=== PATIENT | female | born 1980 | race Caucasian/White ===

== ENCOUNTER 2019-10-27 06:53 | Emergency (ER) | payer SELFPAY ==
[~2019-10-27] VITALS: Ht 160 cm; Wt 76.0 kg
[2019-10-27 06:55] VITALS: BP 119/63
[2019-10-27] MEDS ORDERED: LIDOCAINE-MPF 1%, 5ML ONE (07:07)
--- NOTE | 2019-10-27 07:12 | NUR ---
First contact with pt. Pt c/o L LE abscess x2 weeks, states she was injecting meth into her calf and got the abscess. Pt refusing to take her pants, shoes and socks off despite education that the ERP needs to visualize the whole leg in their assessment. Pt ambulatory around room and to bathroom with steady gait
== END 2019-10-27 07:30 | disposition home or self-care (01) ==
LOC: ED 07:20
DX: L03.116 Cellulitis of left lower limb (principal); M79.662 Pain in left lower leg
CPT/HCPCS: 99283

== ENCOUNTER 2020-07-23 12:03 | Inpatient (IN) | payer MEDICAID, OTHER ==
[~2020-07-23] VITALS: Ht 160 cm; Wt 77.6 kg
--- NOTE | 2020-07-23 12:21 | NUR ---
No answer in lobby.
--- NOTE | 2020-07-23 12:37 | NUR ---
No answer in lobby.
--- NOTE | 2020-07-23 12:43 | NUR ---
NO ANSWER IN LOBBY.
--- NOTE | 2020-07-23 13:55 | NUR ---
PT ATTACHED TO VS AND CARDIAC MONITORS. PIV ACCESS ATTEMPTED X 2 BUT PT UNCOOPERATIVE AT THIS TIME. DR BARRAGAN AT BS. PT REFUSES EJ IV PLACEMENT. JOSHUA RN, ASKED TO ASSIST WITH US IV. PT EDUCATED ON ER PROCESS AND POC AND VERBALIZES UNDERSTANDING.
[2020-07-23] MEDS ORDERED: PIPERACILLIN/TAZO/PMX 3.375GM 50 ML IVPB ONE (14:00)
[2020-07-23] MEDS ORDERED: SODIUM CHLORIDE FLUSH 10ML SYR IVF ONE (14:00)
[2020-07-23] MEDS ORDERED: VANCOMYCIN PER PHARMACY MC ONE (14:00)
[2020-07-23] MEDS ORDERED: SODIUM CHLORIDE 0.9% 1,000ML IVBOLUS ONE (14:00)
[2020-07-23] MEDS ORDERED: SODIUM CHLORIDE 0.9% 1,000 ML IV ONE (14:00)
[2020-07-23] MEDS ORDERED: VANCOMYCIN 1,700 MG in SODIUM CHLORIDE 0.9% 250 ML IV ONE (14:00)
--- NOTE | 2020-07-23 14:08 | NUR ---
US TECH AT FOR US OF
--- NOTE | 2020-07-23 14:31 | NUR ---
JOSHUA AND SAMANTHA MALIN, AT TO ATTEMPT PIV ACCESS VIA US AT THIS TIME.
--- NOTE | 2020-07-23 14:43 | NUR ---
PIV ACCESS ESTABLISHED VIA US GUIDANCE. BC DRAWN X 2. PT AMBULATES TO RESTROOM WITH SLOW BUT STEADY GAIT FOR UA.
[2020-07-23 14:51] LABS: HCT (SEDRATE) 37.1 % (34.6-47.8)
[2020-07-23] MEDS ORDERED: PIPERACILLIN/TAZO/PMX 3.375GM 50 ML ONE (14:52)
[2020-07-23 14:53] LABS: BASOPHILS % (AUTO) 0 % (0-1); EOSINOPHILS % (AUTO) 0 % (1-7); LYMPHOCYTES % (AUTO) 16 % (22-44); MEAN CORPUSCULAR HEMOGLOBIN 30.3 pg (27.0-34.8); MEAN CORPUSCULAR HGB CONC 33.6 g/dL (32.4-35.8); MONOCYTES % (AUTO) 7 % (2-9); NEUTROPHILS % (AUTO) 77 % (42-75); PLATELET COUNT 311 x10^3/uL (130-400); RED BLOOD COUNT 4.35 x10^6/uL (3.82-5.3); RED CELL DISTRIBUTION WIDTH 13.7 % (9.6-15.2)
[2020-07-23 15:02] LABS: ALANINE AMINOTRANSFERASE 19 U/L (12-78); ANION GAP 9 mmol/L (5-15); CALCIUM 8.4 mg/dL (8.5-10.1); CHLORIDE 103 mmol/L (98-107); CREATININE 0.82 mg/dL (0.55-1.02)
[2020-07-23 15:06] LABS: ALKALINE PHOSPHATASE 68 U/L (45-117); BILIRUBIN,TOTAL 0.6 mg/dL (0.2-1.0); TOTAL PROTEIN 7.1 g/dL (6.4-8.2)
--- NOTE | 2020-07-23 15:19 | NUR ---
PT REFUSING XRAY AT THIS TIME.
[2020-07-23 15:22] LABS: MD SCAN
[2020-07-23] MEDS ORDERED: BENZONATATE 100 MG CAPSULE PO ONE (15:30)
[2020-07-23] MEDS ORDERED: BENZONATATE 100 MG CAPSULE ONE (15:49)
--- NOTE | 2020-07-23 15:50 | NUR ---
[facility]
[2020-07-23] MEDS ORDERED: ONDANSETRON ODT 4 MG PO PRN (16:00)
[2020-07-23] MEDS ORDERED: DOCUSATE 100 MG CAPSULE PO PRN (16:00)
[2020-07-23] MEDS ORDERED: hydrALAzine 20 MG/ML, 1ML IVPush PRN (16:00)
[2020-07-23] MEDS ORDERED: POLYETHYLENE GLYCOL 17 GM PACKET PO PRN (16:00)
[2020-07-23] MEDS ORDERED: BISACODYL 10 MG SUPP PR PRN (16:00)
[2020-07-23] MEDS ORDERED: SODIUM CHLORIDE FLUSH 10ML SYR IVF PRN (16:00)
[2020-07-23] MEDS ORDERED: PROMETHAZINE 25 MG/ML, 1ML IM PRN (16:00)
[2020-07-23] MEDS ORDERED: POTASSIUM CHLORIDE 40 MEQ in SODIUM CHLORIDE 0.9% 500 ML IV ONE (16:00)
[2020-07-23] MEDS ORDERED: VANCOMYCIN PMX 1GM/200ML 200 ML IV ONE (16:30)
[2020-07-23] MEDS ORDERED: VANCOMYCIN PER PHARMACY MC PRN (16:30)
--- NOTE | 2020-07-23 16:53 | NUR ---
REPORT OF PT TO SAMANTHA AQUINO. ALL QUESTIONS ANSWERED. TECH PAGED FOR TRANSPORT OF PT FROM ED TO FLOOR AT THIS TIME.
[2020-07-23 17:23] VITALS: BP 100/68
[2020-07-23] MEDS: OXYcodone IR 5MG TABLET PO PRN ×2 (17:37→22:15)
[2020-07-23] MEDS: ENOXAPARIN 40 MG/0.4 ML SQ SCH (17:39)
[2020-07-23] MEDS ORDERED: PHARMACOKINETIC MONITORING MC PRN (18:00)
[2020-07-23 19:56] VITALS: BP 100/60
[2020-07-23] MEDS: AMPICILLIN/SULBACTAM 3 GM in SODIUM CHLORIDE 0.9% 100 ML IV SCH (20:14)
[2020-07-23] MEDS: SODIUM CHLORIDE 0.9% 1,000 ML IV SCH (20:23)
[2020-07-23 21:30] VITALS: BP 96/60
[2020-07-23] MEDS: ACETAMINOPHEN 325 MG TABLET PO PRN (22:15)
[2020-07-24] MEDS: ONDANSETRON 2MG/ML, 2ML IVPush PRN (00:11)
[2020-07-24 00:36] VITALS: BP 105/63
[2020-07-24] MEDS: AMPICILLIN/SULBACTAM 3 GM in SODIUM CHLORIDE 0.9% 100 ML IV SCH ×2 (01:31→07:54)
[2020-07-24] MEDS: VANCOMYCIN 1,400 MG in SODIUM CHLORIDE 0.9% 250 ML IV SCH ×2 (02:12→14:03)
[2020-07-24] MEDS: SODIUM CHLORIDE 0.9% 1,000 ML IV SCH (05:00)
[2020-07-24 05:17] LABS: BASOPHILS % (AUTO) 0 % (0-1); EOSINOPHILS % (AUTO) 1 % (1-7); LYMPHOCYTES % (AUTO) 24 % (22-44); MEAN CORPUSCULAR HEMOGLOBIN 30.6 pg (27.0-34.8); MEAN CORPUSCULAR HGB CONC 33.4 g/dL (32.4-35.8); MEAN PLATELET VOLUME 7.1 fL (7.4-10.4); MONOCYTES % (AUTO) 8 % (2-9); NEUTROPHILS % (AUTO) 67 % (42-75); PLATELET COUNT 247 x10^3/uL (130-400); RED BLOOD COUNT 3.47 x10^6/uL (3.82-5.3); RED CELL DISTRIBUTION WIDTH 13.7 % (9.6-15.2)
[2020-07-24 05:19] LABS: MD NO
[2020-07-24 05:28] LABS: ALANINE AMINOTRANSFERASE 19 U/L (12-78); ALBUMIN 2.3 g/dL (3.4-5.0); ANION GAP 7 mmol/L (5-15); CALCIUM 7.8 mg/dL (8.5-10.1); CHLORIDE 108 mmol/L (98-107)
[2020-07-24 05:37] LABS: ALKALINE PHOSPHATASE 62 U/L (45-117); BILIRUBIN,TOTAL 0.6 mg/dL (0.2-1.0); CHOL/HDL RATIO 1.6; CHOLESTEROL, TOTAL 80 mg/dL (140-239); HDL CHOL % 64 % (28-40); HDL CHOLESTEROL (DIRECT) 51 mg/dL (40-60); LDL CHOLESTEROL,CALCULATED 21 mg/dL (54-169); LDL/HDL RATIO 0.4 (0.5-3.0); TOTAL PROTEIN 5.8 g/dL (6.4-8.2); TRIGLYCERIDES 38 mg/dL (50-200); VLDL CHOLESTEROL 8 mg/dL (0-25)
[2020-07-24 07:30] VITALS: BP 97/63
[2020-07-24] MEDS: OXYcodone IR 5MG TABLET PO PRN ×2 (07:54→21:19)
[2020-07-24] MEDS: PIPERACILLIN/TAZO/PMX 3.375GM 50 ML IV SCH ×2 (09:57→16:49)
[2020-07-24 12:39] VITALS: BP 104/68
[2020-07-24] MEDS ORDERED: LORazepam 2 MG/ML, 1ML IVPush ONE (13:00)
[2020-07-24 13:09] LABS: MICROSCOPIC NOT IND
[2020-07-24] MEDS ORDERED: GADOTERATE 7.5 MMOL/15ML SYR ONE (13:13)
[2020-07-24] MEDS: ENOXAPARIN 40 MG/0.4 ML SQ SCH (16:00)
[2020-07-24 18:00] VITALS: BP 96/58
[2020-07-24 19:33] VITALS: BP 118/79
[2020-07-25 00:54] VITALS: BP 110/84
[2020-07-25] MEDS: PIPERACILLIN/TAZO/PMX 3.375GM 50 ML IV SCH ×3 (00:55→18:29)
[2020-07-25] MEDS: VANCOMYCIN 1,400 MG in SODIUM CHLORIDE 0.9% 250 ML IV SCH ×2 (01:52→13:47)
[2020-07-25 07:36] VITALS: BP 95/60
[2020-07-25 07:41] LABS: BASOPHILS % (AUTO) 0 % (0-1); EOSINOPHILS % (AUTO) 2 % (1-7); LYMPHOCYTES % (AUTO) 20 % (22-44); MEAN CORPUSCULAR HEMOGLOBIN 30.6 pg (27.0-34.8); MEAN CORPUSCULAR HGB CONC 33.4 g/dL (32.4-35.8); MEAN PLATELET VOLUME 6.7 fL (7.4-10.4); MONOCYTES % (AUTO) 6 % (2-9); NEUTROPHILS % (AUTO) 73 % (42-75); PLATELET COUNT 252 x10^3/uL (130-400); RED BLOOD COUNT 3.53 x10^6/uL (3.82-5.3); RED CELL DISTRIBUTION WIDTH 13.9 % (9.6-15.2)
[2020-07-25 07:48] LABS: ANION GAP 4 mmol/L (5-15); CALCIUM 8.1 mg/dL (8.5-10.1); CHLORIDE 105 mmol/L (98-107); CREATININE 0.62 mg/dL (0.55-1.02)
[2020-07-25 07:49] LABS: INTERNATIONAL NORMALIZED RATIO 1.1 (0.93-1.1); PROTHROMBIN TIME 11.7 Seconds (9.6-11.5)
[2020-07-25 07:51] LABS: MD NO
[2020-07-25] MEDS: OXYcodone IR 5MG TABLET PO PRN ×2 (09:54→21:25)
[2020-07-25] MEDS ORDERED: CHLORHEXIDINE 15 ML UDC MM ONE (11:30)
[2020-07-25 13:43] VITALS: BP 95/59
[2020-07-25] MEDS: ENOXAPARIN 40 MG/0.4 ML SQ SCH (15:45)
[2020-07-25] MEDS ORDERED: FENTANYL PF 250 MCG/5ML ONE (16:10)
[2020-07-25] MEDS ORDERED: MIDAZOLAM 1 MG/ML, 2ML ONE (16:10)
[2020-07-25] MEDS ORDERED: ROCURONIUM 10MG/ML,5ML ONE (16:11)
[2020-07-25] MEDS ORDERED: SUCCINYLCHOLINE 20 MG/ML, 10ML ONE (16:11)
[2020-07-25] MEDS ORDERED: ALBUTEROL SULFATE 2.5 MG/3 ML NPPB PRN (17:00)
[2020-07-25] MEDS ORDERED: FENTANYL PF 100 MCG/2ML IV PRN (17:00)
[2020-07-25] MEDS ORDERED: ACETAMINOPHEN 325 MG TABLET PO PRN (17:00)
[2020-07-25] MEDS ORDERED: ONDANSETRON 2MG/ML, 2ML IVPush PRN (17:00)
[2020-07-25] MEDS ORDERED: EPHEDRINE 50 MG/ML, 1ML IVPush PRN (17:00)
[2020-07-25] MEDS ORDERED: PROMETHAZINE 25 MG/ML, 1ML IVPush PRN (17:00)
[2020-07-25] MEDS ORDERED: DIAZEPAM 5 MG/ML, 2ML IVPush PRN (17:00)
[2020-07-25] MEDS ORDERED: hydrALAzine 20 MG/ML, 1ML IV PRN (17:00)
[2020-07-25] MEDS ORDERED: OXYcodone 5 MG/5 ML ORAL.SOL UDC PO PRN (17:00)
[2020-07-25] MEDS ORDERED: LABETALOL 5MG/ML, 20ML IV PRN (17:00)
[2020-07-25] MEDS ORDERED: MIDAZOLAM 1 MG/ML, 2ML IV PRN (17:00)
[2020-07-25] MEDS ORDERED: PROMETHAZINE 12.5 MG SUPP PR PRN (17:00)
[2020-07-25] MEDS ORDERED: HYDROmorphone 1 MG/ML, 1ML INJ IVPush PRN (17:00)
[2020-07-25] MEDS ORDERED: MEPERIDINE/PF 25MG/0.5ML IVPush PRN (17:00)
[2020-07-25] MEDS ORDERED: DIPHENHYDRAMINE 50 MG/ML, 1ML IVPush PRN ×2 (17:00)
[2020-07-25] MEDS ORDERED: ONDANSETRON 2MG/ML, 2ML ONE (17:05)
[2020-07-25] MEDS ORDERED: OXYcodone 5 MG/5 ML ORAL.SOL UDC ONE (17:38)
[2020-07-25] MEDS ORDERED: FENTANYL PF 100 MCG/2ML ONE (17:38)
[2020-07-25 18:12] VITALS: BP 113/73
[2020-07-25] MEDS: VANCOMYCIN 1,500 MG in SODIUM CHLORIDE 0.9% 250 ML IV SCH (21:59)
[2020-07-26] MEDS: PIPERACILLIN/TAZO/PMX 3.375GM 50 ML IV SCH ×3 (01:06→17:08)
[2020-07-26] MEDS: OXYcodone IR 5MG TABLET PO PRN ×2 (02:31→19:02)
[2020-07-26] MEDS: VANCOMYCIN 1,500 MG in SODIUM CHLORIDE 0.9% 250 ML IV SCH ×3 (05:58→21:47)
[2020-07-26 06:15] LABS: BASOPHILS % (AUTO) 1 % (0-1); EOSINOPHILS % (AUTO) 2 % (1-7); LYMPHOCYTES % (AUTO) 25 % (22-44); MEAN CORPUSCULAR HEMOGLOBIN 30.4 pg (27.0-34.8); MEAN CORPUSCULAR HGB CONC 33.7 g/dL (32.4-35.8); MEAN PLATELET VOLUME 7.4 fL (7.4-10.4); MONOCYTES % (AUTO) 7 % (2-9); NEUTROPHILS % (AUTO) 66 % (42-75); PLATELET COUNT 324 x10^3/uL (130-400); RED BLOOD COUNT 3.43 x10^6/uL (3.82-5.3); RED CELL DISTRIBUTION WIDTH 13.9 % (9.6-15.2)
[2020-07-26 06:21] LABS: ANION GAP 5 mmol/L (5-15); CALCIUM 8.4 mg/dL (8.5-10.1); CHLORIDE 103 mmol/L (98-107)
[2020-07-26 06:22] LABS: CREATININE 0.57 mg/dL (0.55-1.02)
[2020-07-26 06:27] LABS: MD NO
[2020-07-26 07:12] VITALS: BP 96/61
[2020-07-26] MEDS: morphine SULFATE 10 MG/ML, 1ML IVPush PRN ×3 (10:12→17:06)
[2020-07-26 13:13] VITALS: BP 115/68
[2020-07-26] MEDS: POLYETHYLENE GLYCOL 17 GM PACKET PO SCH (14:35)
[2020-07-26] MEDS: ENOXAPARIN 40 MG/0.4 ML SQ SCH (17:08)
[2020-07-26 18:59] VITALS: BP 114/68
[2020-07-27 00:01] VITALS: BP 128/81
[2020-07-27] MEDS: PIPERACILLIN/TAZO/PMX 3.375GM 50 ML IV SCH ×3 (00:53→16:32)
[2020-07-27] MEDS: OXYcodone IR 5MG TABLET PO PRN ×3 (02:09→22:24)
[2020-07-27] MEDS: VANCOMYCIN 1,500 MG in SODIUM CHLORIDE 0.9% 250 ML IV SCH ×3 (05:56→22:23)
[2020-07-27 07:10] VITALS: BP 118/77
[2020-07-27] MEDS: POLYETHYLENE GLYCOL 17 GM PACKET PO SCH (08:23)
[2020-07-27] MEDS: SENNOSIDES 8.6 MG TABLET PO SCH (08:23)
[2020-07-27] MEDS: morphine SULFATE 10 MG/ML, 1ML IVPush PRN (12:27)
[2020-07-27 13:53] VITALS: BP 148/92
[2020-07-27] MEDS: ENOXAPARIN 40 MG/0.4 ML SQ SCH (16:32)
[2020-07-27 20:00] VITALS: BP 102/59
[2020-07-28] MEDS: PIPERACILLIN/TAZO/PMX 3.375GM 50 ML IV SCH (00:32)
[2020-07-28] MEDS ORDERED: DIPHENHYDRAMINE 25 MG CAPSULE PO PRN (01:00)
[2020-07-28 02:00] VITALS: BP 100/59
[2020-07-28] MEDS: OXYcodone IR 5MG TABLET PO PRN ×4 (04:53→21:31)
[2020-07-28] MEDS: VANCOMYCIN 1,500 MG in SODIUM CHLORIDE 0.9% 250 ML IV SCH (06:21)
[2020-07-28 07:12] VITALS: BP 101/62
[2020-07-28] MEDS: POLYETHYLENE GLYCOL 17 GM PACKET PO SCH (07:59)
[2020-07-28] MEDS: SENNOSIDES 8.6 MG TABLET PO SCH (07:59)
[2020-07-28] MEDS: morphine SULFATE 10 MG/ML, 1ML IVPush PRN (11:36)
[2020-07-28] MEDS: AMPICILLIN/SULBACTAM 3 GM in SODIUM CHLORIDE 0.9% 100 ML IV SCH ×3 (11:38→23:33)
[2020-07-28 15:25] VITALS: BP 132/89
[2020-07-28] MEDS: ENOXAPARIN 40 MG/0.4 ML SQ SCH (16:44)
[2020-07-28 19:25] VITALS: BP 133/72
[2020-07-29 01:58] VITALS: BP 101/63
[2020-07-29] MEDS: AMPICILLIN/SULBACTAM 3 GM in SODIUM CHLORIDE 0.9% 100 ML IV SCH ×4 (05:32→23:32)
[2020-07-29 05:43] VITALS: BP 137/78
[2020-07-29] MEDS: ONDANSETRON 2MG/ML, 2ML IVPush PRN (05:50)
[2020-07-29 06:00] LABS: ANION GAP 8 mmol/L (5-15); CALCIUM 8.8 mg/dL (8.5-10.1); CHLORIDE 102 mmol/L (98-107); CREATININE 0.61 mg/dL (0.55-1.02)
[2020-07-29 07:37] VITALS: BP 118/76
[2020-07-29] MEDS: SENNOSIDES 8.6 MG TABLET PO SCH (08:25)
[2020-07-29 12:54] VITALS: BP 121/72
[2020-07-29] MEDS: ENOXAPARIN 40 MG/0.4 ML SQ SCH (17:23)
[2020-07-29] MEDS: OXYcodone IR 5MG TABLET PO PRN ×2 (17:34→22:34)
[2020-07-29 20:03] VITALS: BP 134/79
[2020-07-30 01:20] VITALS: BP 106/68
[2020-07-30] MEDS: AMPICILLIN/SULBACTAM 3 GM in SODIUM CHLORIDE 0.9% 100 ML IV SCH ×4 (05:34→23:08)
[2020-07-30] MEDS: ONDANSETRON 2MG/ML, 2ML IVPush PRN (05:34)
[2020-07-30] MEDS: OXYcodone IR 5MG TABLET PO PRN (05:42)
[2020-07-30 07:31] VITALS: BP 122/79
[2020-07-30] MEDS: SENNOSIDES 8.6 MG TABLET PO SCH (08:23)
[2020-07-30] MEDS: morphine SULFATE 10 MG/ML, 1ML IVPush PRN (09:43)
[2020-07-30] MEDS: ACETAMINOPHEN 325 MG TABLET PO PRN (11:33)
[2020-07-30 14:33] VITALS: BP 104/66
[2020-07-30] MEDS ORDERED: PROCHLORPERAZINE 5 MG/ML, 2ML IVPush PRN (15:00)
[2020-07-30] MEDS: ENOXAPARIN 40 MG/0.4 ML SQ SCH (16:08)
[2020-07-30 20:20] VITALS: BP 113/73
[2020-07-31 02:00] VITALS: BP 105/63
[2020-07-31] MEDS: AMPICILLIN/SULBACTAM 3 GM in SODIUM CHLORIDE 0.9% 100 ML IV SCH ×3 (05:22→17:14)
[2020-07-31 07:30] VITALS: BP 110/65
[2020-07-31] MEDS: SENNOSIDES 8.6 MG TABLET PO SCH (08:03)
[2020-07-31] MEDS: morphine SULFATE 10 MG/ML, 1ML IVPush PRN (10:21)
[2020-07-31 13:09] VITALS: BP 130/84
[2020-07-31] MEDS: ENOXAPARIN 40 MG/0.4 ML SQ SCH (16:00)
[2020-07-31 18:27] VITALS: BP 122/77
== END 2020-07-31 21:05 | disposition left against medical advice (07) | DRG 872 ==
LOC: ED 14:32 → EDIP 15:59 → 4NW 17:34 → 3N 07-24 17:42
PROVIDERS: ADMIT Internal Medicine; ATTEND Internal Medicine
PROC: 0HBBXZZ Excision of Right Upper Arm Skin, External Approach (ICD-10-PCS; principal; 2020-07-25 16:00)
PROC: 02HV33Z Insertion of Infusion Device into Superior Vena Cava, Percutaneous Approach (ICD-10-PCS; 2020-07-28)
PROC: B5181ZA Fluoroscopy of Superior Vena Cava using Low Osmolar Contrast, Guidance (ICD-10-PCS; 2020-07-28)
PROC: B548ZZA Ultrasonography of Superior Vena Cava, Guidance (ICD-10-PCS; 2020-07-28)
DX: A41.9 Sepsis, unspecified organism (principal); L03.113 Cellulitis of right upper limb; F15.20 Other stimulant dependence, uncomplicated; L03.115 Cellulitis of right lower limb; L02.413 Cutaneous abscess of right upper limb; Z20.822 Contact with and (suspected) exposure to COVID-19; Z53.29 Procedure and treatment not carried out because of patient's decision for other reasons; E87.6 Hypokalemia; F17.290 Nicotine dependence, other tobacco product, uncomplicated; R60.9 Edema, unspecified; B96.7 Clostridium perfringens [C. perfringens] as the cause of diseases classified elsewhere; K59.00 Constipation, unspecified; Z59.0 Homelessness
CPT/HCPCS: 36415; 36573; 71045; 80048; 80053; 80061; 80074; 80202; 81003; 83036; 83605; 83735; 84100; 84443; 84703; 85025; 85610; 85651; 86140; 86592; 87040; 87070; 87075; 87076; 87102; 87205; 87635; 87806; 93005; 96365; 96366; 96368; 99285; G0378; J0295; J1650; J2250; J2405; J2543; J3010; J3370; J3480; Q0162; A9575; C1751; G0475; J0330; J0780; J2060; J2270; J7030; J7040; J7050; Q0163